=== PATIENT | female | born 1980 | race Two or more races ===

== ENCOUNTER 2024-09-19 14:29 | Outpatient (CLI) | payer OTHER ==
[2024-09-19 09:01] LABS: BASO % 0.7 % (0.1-1.2); EOS # 0.03 (0.04-0.54); EOS % 0.4 % (0.7-7.0); HEMATOCRIT 35.6 % (34.1-44.9); HEMOGLOBIN 11.2 g/dL (11.2-15.7); LYMPH # 2.36 (1.18-3.74); LYMPH % 32.8 % (19.3-53.1); MEAN CORPUSCULAR HEMOGLOBIN 27.1 pg (25.6-32.2); MONO # 0.68 (0.24-0.82); MONO % 9.5 % (4.7-12.5); NEUT # 4.05 (1.56-6.13); NEUT % 56.3 % (34.0-71.1); PLATELET COUNT 325 K/uL (163-369); RED BLOOD COUNT 4.14 M/uL (3.93-5.22); RED CELL DISTRIBUTION WIDTH 14.7 % (11.6-14.4)
[2024-09-19 09:05] LABS: PH,URINE 7.5 (5.0-8.0); URINE APPEARANCE Clear; URINE BILIRRUBIN Negative (NEGATIVE); URINE BLOOD Trace; URINE COLOR Yellow; URINE GLUCOSE Negative (NEGATIVE); URINE KETONE Negative (NEGATIVE); URINE LEUKOCYTE Negative; URINE NITRATE Negative; URINE PROTEIN Negative (NEGATIVE); URINE UROBILINOGEN 0.2 E.U./dl
[2024-09-19 09:06] LABS: URINE BACTERIA 1680.2 uL (0.0-1933); URINE EPITHELIAL CELLS 28.8 uL (0.0-38.8); URINE RBC 45.5 uL (0.0-20.8); URINE WBC 8.7 uL (0.0-23.2)
[2024-09-19 09:07] LABS: INR 0.97; PARTIAL THROMBOPLASTIN TIME 26.7 SECONDS (22.0-34.0); PROTHROMBIN TIME 10.6 SECONDS (9.0-11.5)
[2024-09-19 09:29] LABS: ALBUMIN 3.8 gm/dL (3.4-5.0); BILIRUBIN TOTAL 0.38 mg/dL (0.3-1.2); CREATININE SERUM 0.65 mg/dL (0.55-1.02); GFR 99.02; GLOBULINA 3.1 G/DL (2.4-3.5); POTASSIUM 4.07 mEq/L (3.5-5.1); TOTAL PROTEIN 6.9 gm/dL (6.4-8.2)
[2024-09-19 09:42] LABS: URINE CAST 0.44 uL (0.0-1.40)
== END 2024-09-19 14:32 | disposition home or self-care (01) ==
LOC: LAB 14:29
PROVIDERS: ATTEND Obstetrics & Gynecology
DX: R05.9 Cough, unspecified (principal); R07.9 Chest pain, unspecified; N91.1 Secondary amenorrhea

== ENCOUNTER 2024-10-03 12:15 | Inpatient (IN) | payer OTHER ==
[~2024-10-03] VITALS: Ht 160 cm; Wt 61.2 kg
[2024-10-03 14:06] VITALS: BP 122/79
[2024-10-05] MEDS ORDERED: CEFAZOLIN SODIUM 1,000 MG VIAL IV ONE (11:15)
[2024-10-05] MEDS ORDERED: MORPHINE SULFATE 4 MG/ML CARTRIDGE IV PRN (12:00)
[2024-10-05] MEDS ORDERED: ONDANSETRON HCL 2 MG/ML VIAL IV PRN (12:00)
[2024-10-05] MEDS ORDERED: RINGERS SOLUTION,LACTATED 1,000 ML IV SCH (12:00)
[2024-10-05] MEDS ORDERED: MORPHINE SULFATE 4 MG/ML VIAL IV ONE (12:20)
[2024-10-05 14:02] VITALS: BP 122/79
[2024-10-05 16:00] VITALS: BP 123/75
[2024-10-06 00:42] VITALS: BP 158/89
[2024-10-06 08:50] VITALS: BP 146/86; O2SAT 98
[2024-10-06] MEDS ORDERED: ENOXAPARIN SODIUM 40 MG/0.4 ML SYRINGE SUBCUTANEO SCH (09:00)
[2024-10-06 10:47] LABS: BASO % 0.2 % (0.1-1.2); EOS # 0.00 (0.04-0.54); EOS % 0.0 % (0.7-7.0); LYMPH # 1.47 (1.18-3.74); LYMPH % 13.5 % (19.3-53.1); MEAN PLATELET VOLUME 9.60 fl (9.4-12.4); MONO # 1.40 (0.24-0.82); NEUT # 8.00 (1.56-6.13); NEUT % 73.2 % (34.0-71.1); RED CELL DISTRIBUTION WIDTH 14.1 % (11.6-14.4)
[2024-10-06 10:50] LABS: MONO % 12.8 % (4.7-12.5)
[2024-10-06 13:00] VITALS: BP 120/74; O2SAT 98
[2024-10-06 16:00] VITALS: BP 129/78
[2024-10-07 00:49] VITALS: BP 137/84
[2024-10-07] MEDS ORDERED: OxyCODONE HCL 5 MG TABLET (ROXICODONE) PO PRN (06:00)
[2024-10-07 08:53] VITALS: BP 135/81
[2024-10-07 16:00] VITALS: BP 117/77
[2024-10-08 01:04] VITALS: BP 103/66
[2024-10-08 08:35] VITALS: BP 114/78
== END 2024-10-08 13:08 | disposition home or self-care (01) | DRG 743 ==
LOC: OB/GYN 10-05 09:30 → O/R 10-05 11:02 → OB/GYN 10-05 11:02
PROVIDERS: ADMIT Obstetrics & Gynecology; ATTEND Obstetrics & Gynecology
PROC: 0UT70ZZ Resection of Bilateral Fallopian Tubes, Open Approach (ICD-10-PCS; 2024-10-05)
PROC: 0UT90ZL Resection of Uterus, Supracervical, Open Approach (ICD-10-PCS; principal; 2024-10-05 09:30)
DX: D25.1 Intramural leiomyoma of uterus (principal); D25.2 Subserosal leiomyoma of uterus; D25.0 Submucous leiomyoma of uterus